=== PATIENT | male | born 1990 | race Caucasian/White ===

== ENCOUNTER 2021-12-04 14:22 | Emergency (ER) | payer BC ==
[2021-12-04 14:27] VITALS: BP 130/79; PULSE 107; RESP 18; TEMP 99.4; BMI 29.7
== END 2021-12-04 15:42 | disposition home or self-care (01) ==
LOC: JER 14:22
DX: J02.9 Acute pharyngitis, unspecified (principal); R05.1 Acute cough
CPT/HCPCS: 87651; 99283-25; C9803-CS; U0003; U0005

== ENCOUNTER 2022-09-11 20:29 | Emergency (ER) | payer OTHER ==
[2022-09-11 20:58] VITALS: BP 143/90; PULSE 75; RESP 18; TEMP 98.2; BMI 31.3
[2022-09-12] MEDS ORDERED: KETOROLAC TROMETHAMINE 30 MG/1 ML VIAL IM ONE (01:08)
[2022-09-12] MEDS ORDERED: ACETAMINOPHEN 325 MG TABLET (FP) PO ONE (01:09)
[2022-09-12] MEDS ORDERED: KETOROLAC TROMETHAMINE 30 MG/1 ML VIAL ONE (01:24)
[2022-09-12] MEDS ORDERED: ACETAMINOPHEN 325 MG TABLET (FP) ONE (01:24)
== END 2022-09-12 02:36 | disposition home or self-care (01) ==
LOC: JER 20:29 → JERFT 20:29 → JER 09-12 02:36
PROC: 3E0333Z Introduction of Anti-inflammatory into Peripheral Vein, Percutaneous Approach (ICD-10-PCS; principal; 2022-09-12)
DX: M25.552 Pain in left hip (principal); M25.532 Pain in left wrist; M79.652 Pain in left thigh; W20.8XXA Other cause of strike by thrown, projected or falling object, initial encounter; Y99.0 Civilian activity done for income or pay
CPT/HCPCS: 72170-TC-FY; 73110-TC-LT-FY; 73130-TC-LT-FY; 73552-TC-LT-FY; 99284-25